=== PATIENT | male | born 1945 | race Asian ===

== ENCOUNTER 2024-10-27 19:00 | Inpatient (IN) | payer MEDICARE, OTHER ==
[~2024-10-27] VITALS: Ht 172.7 cm; Wt 56.2 kg
[2024-10-27 19:49] VITALS: BP 146/78
[2024-10-27] MEDS ORDERED: MAGNESIUM HYDROXIDE 30 ML LIQUID UDC PO PRN (22:00)
[2024-10-27] MEDS ORDERED: LORAZEPAM 0.5 MG TABLET PO PRN (22:00)
[2024-10-27] MEDS ORDERED: MAG HYDROX/AL HYDROX/SIMETH 30 ML LIQUID UDC PO PRN (22:00)
[2024-10-27 22:15] VITALS: BP 169/80; TEMP 98.2; O2SAT 100
[2024-10-27] MEDS: TEMAZEPAM 7.5 MG CAPSULE PO PRN (23:01)
[2024-10-28 07:52] LABS: ASPARTATE AMINOTRANSFERASE 31 U/L (15-37); CREATININE 0.7 mg/dL (0.6-1.3); SODIUM SERUM 140 mmol/L (136-145); TOTAL PROTEIN, SERUM 6.8 g/dL (6.4-8.2); UREA NITROGEN, BLOOD 11 mg/dL (7-18)
[2024-10-28 08:24] VITALS: BP 168/82; TEMP 98.2; O2SAT 100
[2024-10-28 16:28] VITALS: BP 129/47; TEMP 98.2; O2SAT 100
[2024-10-28] MEDS: ENSURE ENLIVE (VAN) 240 ML LIQUID PO SCH (16:54)
[2024-10-28] MEDS ORDERED: PRAV40TA3 PO (18:29)
[2024-10-28] MEDS ORDERED: ZOLP10TA2 PO (18:30)
[2024-10-28 19:54] VITALS: BP 153/95; TEMP 97.9; O2SAT 98
[2024-10-28] MEDS: LORAZEPAM 0.5 MG TABLET PO PRN (21:07)
[2024-10-28] MEDS: ACETAMINOPHEN 325 MG TABLET PO PRN (21:08)
[2024-10-29] MEDS: ESCITALOPRAM OXALATE 10 MG TABLET PO SCH (08:33)
[2024-10-29 08:56] VITALS: BP 142/87; TEMP 98.2; O2SAT 100
[2024-10-29] MEDS: BLOOD SUGAR DIAGNOSTIC 1 EACH STRIP VI SCH (11:30)
[2024-10-29] MEDS: METFORMIN HCL 500 MG TABLET PO SCH (12:46)
[2024-10-29 16:36] VITALS: BP 124/77; TEMP 98.2; O2SAT 100
[2024-10-29 19:48] VITALS: BP 138/74; TEMP 97.9; O2SAT 98
[2024-10-29 23:55] LABS: *BILIRUBIN,URIN 1+ (NEGATIVE); *BLOOD, URINE NEGATIVE (NEGATIVE); *CLARITY,URINE CLEAR (CLEAR); *KETONES,URINE TRACE (NEGATIVE); *PROTEIN,URINE 2+ (NEGATIVE); *UROBILINOGEN,URINE 0.2 E.U./dl (NORMAL); LEUKOCYTE ESTERASE ,URINE NEGATIVE (NEGATIVE); NITRITE, URINE NEGATIVE (NEGATIVE); UGLUCOSE TRACE (NEGATIVE)
[2024-10-29 23:58] LABS: *COLOR,URINE DARK YELLOW (YELLOW)
[2024-10-30 00:02] LABS: SQUAMOUS EPITHELIAL CELL,UR FEW /HPF (NONE SEEN); URINE AMORPHOUS URATE FEW /HPF
[2024-10-30] MEDS: TEMAZEPAM 7.5 MG CAPSULE PO PRN (01:55)
[2024-10-30] MEDS: ATORVASTATIN 10 MG TABLET PO SCH (08:26)
[2024-10-30 08:52] VITALS: BP 148/75; TEMP 98.2; O2SAT 100
[2024-10-30] MEDS ORDERED: CLONIDINE HCL 0.1 MG TABLET PO PRN (13:15)
[2024-10-30 16:48] VITALS: BP 136/73; TEMP 98.2; O2SAT 100
[2024-10-30 19:59] VITALS: BP 111/76; TEMP 97.7; O2SAT 97
[2024-10-31 08:00] VITALS: BP 102/58; TEMP 97.2; O2SAT 98
[2024-10-31 16:00] VITALS: BP 140/72; TEMP 98.8; O2SAT 98
[2024-10-31 19:58] VITALS: BP 144/75; TEMP 98.3; O2SAT 100
[2024-11-01 07:56] VITALS: BP 130/74; TEMP 98.2; O2SAT 99
== END 2024-11-01 13:30 | DRG 885 ==
LOC: ER 19:00 → GPS 21:18
PROVIDERS: ADMIT Psychiatry & Neurology Psychosomatic Medicine
DX: F39 Unspecified mood [affective] disorder (principal); F29 Unspecified psychosis not due to a substance or known physiological condition; T42.6X2D Poisoning by other antiepileptic and sedative-hypnotic drugs, intentional self-harm, subsequent encounter; I48.91 Unspecified atrial fibrillation; E78.5 Hyperlipidemia, unspecified; F32.A Depression, unspecified; E11.9 Type 2 diabetes mellitus without complications; K21.9 Gastro-esophageal reflux disease without esophagitis; G47.00 Insomnia, unspecified; I10 Essential (primary) hypertension; I25.10 Atherosclerotic heart disease of native coronary artery without angina pectoris
CPT/HCPCS: 36415; 87086; 93005; A4606; A4663